=== PATIENT | female | born 1955 | race Caucasian/White ===

== ENCOUNTER 2017-08-19 13:00 | Inpatient (IN) | payer OTHER ==
[~2017-08-19] VITALS: Ht 154.9 cm; Wt 58.2 kg
[~2017-08-19 13:00] MED LIST: DOCU-131 PO; LEVO75TA PO; LISI-170 PO; MULT-750 PO; PANT40TA5 PO; TEMA15CA PO
[2017-08-19] MEDS ORDERED: methylPREDNISolone SOD SUCC 125 MG/2 ML ONE (13:44)
[2017-08-19] MEDS ORDERED: RACEPINEPHRINE INH 2.25%, 0.5ML NPPB ONE (14:00)
[2017-08-19] MEDS ORDERED: RACEPINEPHRINE INH 2.25%, 0.5ML ONE (14:06)
[2017-08-19] MEDS ORDERED: LORazepam 2 MG/ML, 1ML IVPush ONE (14:30)
[2017-08-19] MEDS ORDERED: methylPREDNISolone SOD SUCC 125 MG/2 ML IVPush ONE (14:30)
[2017-08-19 14:35] LABS: HEMATOCRIT 39.5 % (34.6-47.8); HEMOGLOBIN 13.7 g/dL (11.7-16.4); WHITE BLOOD COUNT 5.8 x10^3/uL (3.4-10)
[2017-08-19] MEDS ORDERED: LORazepam 2 MG/ML, 1ML ONE (14:41)
[2017-08-19 14:48] LABS: ASPARTATE AMINO TRANSFERASE 25 U/L (15-37); BLOOD UREA NITROGEN 5 mg/dL (7-18)
[2017-08-19] MEDS ORDERED: OMNIPAQUE 350 MG/ML, 100ML BOTTLE ONE (15:47)
[2017-08-19] MEDS ORDERED: IRON1TAB60 PO (16:35)
[2017-08-19] MEDS ORDERED: DOCUSATE 100 MG CAPSULE PO PRN (17:00)
[2017-08-19] MEDS ORDERED: POLYETHYLENE GLYCOL 17 GM PACKET PO PRN (17:00)
[2017-08-19] MEDS ORDERED: BISACODYL 10 MG SUPP PR PRN (17:00)
[2017-08-19] MEDS: RACEPINEPHRINE INH 2.25%, 0.5ML NPPB SCH ×2 (17:30→20:52)
[2017-08-19] MEDS ORDERED: methylPREDNISolone SOD SUCC 125 MG/2 ML IVPush SCH (18:00)
[2017-08-19] MEDS: SODIUM CHLORIDE 0.9% 1,000 ML IV SCH (18:07)
[2017-08-19 18:15] VITALS: BP 107/69
[2017-08-19] MEDS: NICOTINE 14MG/24 HR PATCH.TD24 TD SCH (18:21)
[2017-08-19] MEDS: THIAMINE 100 MG, MVI ADULT 10 ML, FOLIC ACID 1 MG in D5%-0.9% NACL 1,000 ML IV SCH (18:22)
[2017-08-19] MEDS: DEXAMETHASONE 4 MG/ML, 1ML IVPush SCH (18:24)
[2017-08-19] MEDS: AMPICILLIN/SULBACTAM 3 GM in SODIUM CHLORIDE 0.9% 100 ML IV SCH (18:24)
[2017-08-19] MEDS: FAMOTIDINE 20 MG/2 ML IVPush SCH (21:47)
[2017-08-20] MEDS: AMPICILLIN/SULBACTAM 3 GM in SODIUM CHLORIDE 0.9% 100 ML IV SCH ×4 (01:34→18:24)
[2017-08-20] MEDS: DEXAMETHASONE 4 MG/ML, 1ML IVPush SCH ×3 (01:40→17:17)
[2017-08-20] MEDS: SODIUM CHLORIDE 0.9% 1,000 ML IV SCH ×2 (04:00→20:00)
[2017-08-20 04:30] LABS: HEMATOCRIT 38.2 % (34.6-47.8); WHITE BLOOD COUNT 3.9 x10^3/uL (3.4-10)
[2017-08-20 04:43] LABS: BLOOD UREA NITROGEN 7 mg/dL (7-18)
[2017-08-20 04:55] LABS: ASPARTATE AMINO TRANSFERASE 16 U/L (15-37)
[2017-08-20] MEDS: RACEPINEPHRINE INH 2.25%, 0.5ML NPPB SCH ×2 (06:30→10:05)
[2017-08-20] MEDS ORDERED: MAGNESIUM SULFATE PMX 2GM/50ML 50 ML IV ONE (08:30)
[2017-08-20] MEDS: FAMOTIDINE 20 MG/2 ML IVPush SCH ×2 (08:40→20:59)
[2017-08-20] MEDS: morphine SULFATE 10 MG/ML, 1ML IVPush PRN ×2 (08:58→22:37)
[2017-08-20] MEDS ORDERED: LIDOCAINE GEL 2%, 5ML ONE (12:01)
[2017-08-20] MEDS ORDERED: EPINEPHRINE 1 MG/ML, 1ML ONE (12:01)
[2017-08-20] MEDS ORDERED: LIDOCAINE/PF 1%, 30ML ONE (12:01)
[2017-08-20] MEDS ORDERED: EPINEPHRINE TOPICAL SOLN 1 MG/ML, 30ML ONE (12:04)
[2017-08-20] MEDS ORDERED: REMIFENTANIL 1 MG ONE (12:23)
[2017-08-20] MEDS ORDERED: CEFAZOLIN 1,000 MG ONE ×2 (12:31)
[2017-08-20] MEDS ORDERED: MIDAZOLAM 1 MG/ML, 2ML ONE (12:33)
[2017-08-20] MEDS ORDERED: PHENYLEPHRINE 10 MG/ML ONE (12:54)
[2017-08-20] MEDS ORDERED: ONDANSETRON 2MG/ML, 2ML ONE (13:46)
[2017-08-20] MEDS ORDERED: SUCCINYLCHOLINE 20 MG/ML, 10ML ONE (13:46)
[2017-08-20] MEDS ORDERED: DEXAMETHASONE 4 MG/ML, 1ML ONE (13:46)
[2017-08-20] MEDS ORDERED: PROPOFOL 10 MG/ML, 20ML ONE (13:46)
[2017-08-20] MEDS ORDERED: SUFentanil 50 MCG/ML, 1ML ONE (13:47)
[2017-08-20] MEDS ORDERED: EPINEPHRINE 1 MG/ML, 1ML INFIL ONE (14:05)
[2017-08-20] MEDS ORDERED: LIDOCAINE 4% TOPICAL SOLUTION 50 ML TP ONE (14:06)
[2017-08-20] MEDS ORDERED: FENTANYL PF 100 MCG/2ML ONE (14:26)
[2017-08-20] MEDS: FENTANYL PF 100 MCG/2ML IV PRN ×2 (14:30→14:45)
[2017-08-20] MEDS ORDERED: LORazepam 2 MG/ML, 1ML IVPush PRN (15:00)
[2017-08-20] MEDS ORDERED: PROMETHAZINE 25 MG/ML, 1ML IV PRN (15:00)
[2017-08-20] MEDS ORDERED: FENTANYL PF 100 MCG/2ML IV PRN (15:00)
[2017-08-20] MEDS ORDERED: ACETAMINOPHEN 325 MG TABLET PO PRN (15:00)
[2017-08-20] MEDS ORDERED: MEPERIDINE/PF 25MG/0.5ML IVPush PRN (15:00)
[2017-08-20] MEDS ORDERED: OXYcodone 5 MG/5 ML ORAL.SOL UDC PO PRN (15:00)
[2017-08-20] MEDS ORDERED: hydrALAzine 20 MG/ML, 1ML IV PRN (15:00)
[2017-08-20] MEDS ORDERED: LABETALOL 5MG/ML, 20ML IV PRN (15:00)
[2017-08-20] MEDS ORDERED: ONDANSETRON 2MG/ML, 2ML IVPush PRN (15:00)
[2017-08-20] MEDS ORDERED: HYDROmorphone 1 MG/ML, 1ML IV PRN (15:00)
[2017-08-20] MEDS ORDERED: ALBUTEROL SULFATE 2.5 MG/3 ML NPPB PRN (15:00)
[2017-08-20] MEDS ORDERED: LEVOTHYROXINE 100 MCG INJ IVPush ONE (15:30)
[2017-08-20] MEDS: LORazepam 2 MG/ML, 1ML IVPush PRN (16:36)
[2017-08-20] MEDS: NICOTINE 14MG/24 HR PATCH.TD24 TD SCH (17:17)
[2017-08-20] MEDS: ALBUTEROL/IPRATROPIUM 2.5MG/0.5MG, 3 ML NPPB SCH ×2 (18:32→22:55)
[2017-08-20] MEDS: THIAMINE 100 MG, MVI ADULT 10 ML, FOLIC ACID 1 MG in D5%-0.9% NACL 1,000 ML IV SCH (20:59)
[2017-08-21] MEDS: AMPICILLIN/SULBACTAM 3 GM in SODIUM CHLORIDE 0.9% 100 ML IV SCH ×3 (00:41→12:48)
[2017-08-21] MEDS: DEXAMETHASONE 4 MG/ML, 1ML IVPush SCH ×3 (02:13→17:48)
[2017-08-21] MEDS: ALBUTEROL/IPRATROPIUM 2.5MG/0.5MG, 3 ML NPPB SCH ×6 (02:37→23:05)
[2017-08-21 04:34] LABS: ASPARTATE AMINO TRANSFERASE 11 U/L (15-37); BLOOD UREA NITROGEN 6 mg/dL (7-18)
[2017-08-21 04:44] LABS: HEMATOCRIT 34.7 % (34.6-47.8); HEMOGLOBIN 11.9 g/dL (11.7-16.4); WHITE BLOOD COUNT 7.2 x10^3/uL (3.4-10)
[2017-08-21] MEDS: LEVOTHYROXINE 100 MCG INJ IVPush SCH (08:58)
[2017-08-21] MEDS: FAMOTIDINE 20 MG/2 ML IVPush SCH ×2 (08:58→19:52)
[2017-08-21] MEDS: SODIUM CHLORIDE 0.9% 1,000 ML IV SCH ×2 (09:03→23:00)
[2017-08-21] MEDS ORDERED: POTASSIUM PHOSPHATE 44 MEQ in SODIUM CHLORIDE 0.9% 500 ML IV ONE (10:30)
[2017-08-21] MEDS ORDERED: OMNIPAQUE 350 MG/ML, 75ML BOTTLE ONE (11:12)
[2017-08-21] MEDS ORDERED: FENTANYL PF 100 MCG/2ML ONE (13:35)
[2017-08-21] MEDS ORDERED: NALOXONE 1 MG/ML, 2ML ONE (13:35)
[2017-08-21] MEDS ORDERED: FLUMAZENIL 0.1 MG/1 ML, 5ML ONE (13:35)
[2017-08-21] MEDS ORDERED: MIDAZOLAM 1 MG/ML, 5ML ONE (13:35)
[2017-08-21] MEDS ORDERED: LIDOCAINE 1%, 20ML ONE (14:06)
[2017-08-21] MEDS ORDERED: LIDOCAINE GEL 2%, 5ML ONE (14:14)
[2017-08-21] MEDS ORDERED: VISIPAQUE 270 MG/ML, 50ML BOTTLE ONE (15:39)
[2017-08-21] MEDS: NICOTINE 14MG/24 HR PATCH.TD24 TD SCH (17:48)
[2017-08-21] MEDS: morphine SULFATE 10 MG/ML, 1ML IVPush PRN ×2 (19:52→21:12)
[2017-08-21] MEDS ORDERED: RACEPINEPHRINE INH 2.25%, 0.5ML ONE ×2 (23:48→23:53)
[2017-08-21] MEDS: RACEPINEPHRINE INH 2.25%, 0.5ML NPPB PRN (23:55)
[2017-08-22] MEDS: LORazepam 2 MG/ML, 1ML IVPush PRN (00:07)
[2017-08-22] MEDS: THIAMINE 100 MG, MVI ADULT 10 ML, FOLIC ACID 1 MG in D5%-0.9% NACL 1,000 ML IV SCH (00:22)
[2017-08-22] MEDS: DEXAMETHASONE 4 MG/ML, 1ML IVPush SCH ×3 (02:16→18:18)
[2017-08-22] MEDS: ALBUTEROL/IPRATROPIUM 2.5MG/0.5MG, 3 ML NPPB SCH ×6 (02:25→22:18)
[2017-08-22 04:37] LABS: HEMOGLOBIN 11.8 g/dL (11.7-16.4); WHITE BLOOD COUNT 6.6 x10^3/uL (3.4-10)
[2017-08-22 04:52] LABS: BLOOD UREA NITROGEN 6 mg/dL (7-18)
[2017-08-22] MEDS: POTASSIUM CHLORIDE 20 MEQ PACKET GT SCH ×2 (10:54→21:26)
[2017-08-22] MEDS: FAMOTIDINE 20 MG/2 ML IVPush SCH ×2 (10:55→21:25)
[2017-08-22] MEDS: LEVOTHYROXINE 100 MCG INJ IVPush SCH (10:58)
[2017-08-22] MEDS: SODIUM CHLORIDE 0.9% 1,000 ML IV SCH ×2 (13:33→23:00)
[2017-08-22] MEDS: morphine SULFATE 10 MG/ML, 1ML IVPush PRN ×3 (14:28→23:06)
[2017-08-22] MEDS: FOLIC ACID 1 MG TABLET PO SCH (18:18)
[2017-08-22] MEDS: NICOTINE 14MG/24 HR PATCH.TD24 TD SCH (18:19)
[2017-08-22] MEDS ORDERED: FLUCONAZOLE 100 MG TABLET PO ONE (19:30)
[2017-08-22] MEDS: AMPICILLIN/SULBACTAM 3 GM in SODIUM CHLORIDE 0.9% 100 ML IV SCH (21:25)
[2017-08-22] MEDS ORDERED: THIAMINE 100 MG, MVI ADULT 10 ML in D5%-0.9% NACL 1,000 ML IV SCH (23:00)
[2017-08-23] MEDS: ALBUTEROL/IPRATROPIUM 2.5MG/0.5MG, 3 ML NPPB SCH ×5 (03:34→18:00)
[2017-08-23] MEDS: AMPICILLIN/SULBACTAM 3 GM in SODIUM CHLORIDE 0.9% 100 ML IV SCH ×3 (03:48→22:04)
[2017-08-23] MEDS: morphine SULFATE 10 MG/ML, 1ML IVPush PRN (03:48)
[2017-08-23] MEDS: DEXAMETHASONE 4 MG/ML, 1ML IVPush SCH ×2 (03:48→11:08)
[2017-08-23 04:34] LABS: HEMOGLOBIN 12.5 g/dL (11.7-16.4); WHITE BLOOD COUNT 6.5 x10^3/uL (3.4-10)
[2017-08-23 04:45] LABS: BLOOD UREA NITROGEN 7 mg/dL (7-18)
[2017-08-23] MEDS: SODIUM CHLORIDE 0.9% 1,000 ML IV SCH (08:31)
[2017-08-23] MEDS: FAMOTIDINE 20 MG/2 ML IVPush SCH (08:31)
[2017-08-23] MEDS: FOLIC ACID 1 MG TABLET PO SCH (08:31)
[2017-08-23] MEDS: LEVOTHYROXINE 100 MCG INJ IVPush SCH (08:31)
[2017-08-23] MEDS: POTASSIUM CHLORIDE 20 MEQ PACKET GT SCH (08:31)
[2017-08-23] MEDS ORDERED: ACETAMINOPHEN 325 MG TABLET PO PRN (09:30)
[2017-08-23] MEDS ORDERED: MULTIVITAMIN LIQUID PO SCH (09:30)
[2017-08-23] MEDS: OXYcodone 5 MG/5 ML ORAL.SOL UDC PO PRN ×4 (13:00→23:39)
[2017-08-23 14:30] VITALS: BP 155/77
[2017-08-23] MEDS: NICOTINE 14MG/24 HR PATCH.TD24 TD SCH (18:22)
[2017-08-23 21:11] VITALS: BP 128/70
[2017-08-23] MEDS ORDERED: METOCLOPRAMIDE 5 MG/ML, 2ML IVPush ONE (22:00)
[2017-08-24 02:02] VITALS: BP 151/85
[2017-08-24] MEDS: AMPICILLIN/SULBACTAM 3 GM in SODIUM CHLORIDE 0.9% 100 ML IV SCH ×2 (06:00→15:13)
[2017-08-24] MEDS: LEVOTHYROXINE 100 MCG INJ IVPush SCH ×2 (06:00→08:25)
[2017-08-24] MEDS: ALBUTEROL/IPRATROPIUM 2.5MG/0.5MG, 3 ML NPPB SCH ×4 (07:00→20:00)
[2017-08-24 07:18] VITALS: BP 158/83
[2017-08-24] MEDS: MULTIVITAMIN LIQUID PO SCH (08:25)
[2017-08-24] MEDS: OXYcodone 5 MG/5 ML ORAL.SOL UDC PO PRN ×3 (11:22→20:59)
[2017-08-24] MEDS ORDERED: TEMAZEPAM 15 MG CAPSULE PO PRN ×2 (12:30→22:00)
[2017-08-24] MEDS ORDERED: DOCUSATE 100 MG CAPSULE PO PRN ×3 (12:30→22:00)
[2017-08-24 13:50] VITALS: BP 93/63
[2017-08-24] MEDS: LISINOPRIL 20 MG TABLET PO SCH (15:12)
[2017-08-24] MEDS: NICOTINE 14MG/24 HR PATCH.TD24 TD SCH (17:50)
[2017-08-24] MEDS ORDERED: ERGOCALCIFEROL 50,000 UNIT CAPSULE PO SCH (19:30)
[2017-08-24 19:37] VITALS: BP 105/62
[2017-08-24] MEDS ORDERED: ACETAMINOPHEN 325 MG TABLET PO PRN (22:00)
[2017-08-24] MEDS ORDERED: POLYETHYLENE GLYCOL 17 GM PACKET PO PRN (22:00)
[2017-08-24] MEDS ORDERED: BISACODYL 10 MG SUPP PR PRN (22:00)
[2017-08-25] MEDS: OXYcodone 5 MG/5 ML ORAL.SOL UDC PO PRN ×4 (01:21→22:06)
[2017-08-25 01:37] VITALS: BP 101/65
[2017-08-25 05:06] LABS: BLOOD UREA NITROGEN 13 mg/dL (7-18)
[2017-08-25] MEDS: LEVOTHYROXINE 75 MCG TABLET PO SCH (06:00)
[2017-08-25] MEDS: ALBUTEROL/IPRATROPIUM 2.5MG/0.5MG, 3 ML NPPB SCH ×4 (06:55→19:50)
[2017-08-25 07:42] VITALS: BP 105/66
[2017-08-25] MEDS: LISINOPRIL 20 MG TABLET PO SCH (07:44)
[2017-08-25] MEDS: MULTIVITAMIN LIQUID PO SCH (07:46)
[2017-08-25] MEDS ORDERED: ONDANSETRON 2MG/ML, 2ML IVPush PRN (08:00)
[2017-08-25] MEDS ORDERED: POTASSIUM CHLORIDE 40 MEQ in SODIUM CHLORIDE 0.9% 500 ML IV ONE (10:00)
[2017-08-25] MEDS: CHOLECALCIFEROL 1,000 UNIT TABLET PO SCH (12:16)
[2017-08-25 14:00] VITALS: BP 106/67
[2017-08-25 21:05] VITALS: BP 101/65
[2017-08-25] MEDS: NICOTINE 14MG/24 HR PATCH.TD24 TD SCH (22:06)
[2017-08-26 01:03] VITALS: BP 95/57
[2017-08-26] MEDS: OXYcodone 5 MG/5 ML ORAL.SOL UDC PO PRN ×3 (03:47→14:27)
[2017-08-26 04:41] LABS: HEMATOCRIT 36.4 % (34.6-47.8); HEMOGLOBIN 12.5 g/dL (11.7-16.4)
[2017-08-26 04:51] LABS: BLOOD UREA NITROGEN 14 mg/dL (7-18)
[2017-08-26] MEDS: LEVOTHYROXINE 75 MCG TABLET PO SCH (06:44)
[2017-08-26 07:07] VITALS: BP 83/50
[2017-08-26] MEDS: ALBUTEROL/IPRATROPIUM 2.5MG/0.5MG, 3 ML NPPB SCH ×3 (07:50→21:15)
[2017-08-26] MEDS: LISINOPRIL 20 MG TABLET PO SCH (09:43)
[2017-08-26] MEDS: CHOLECALCIFEROL 1,000 UNIT TABLET PO SCH (09:43)
[2017-08-26] MEDS: MULTIVITAMIN LIQUID PO SCH (09:43)
[2017-08-26] MEDS ORDERED: POTASSIUM PHOS 4.4 MEQ/ML IV ONE (14:30)
[2017-08-26] MEDS ORDERED: POTASSIUM PHOSPHATE 22 MEQ in SODIUM CHLORIDE 0.9% 500 ML IV ONE (14:30)
[2017-08-26] MEDS: NICOTINE 14MG/24 HR PATCH.TD24 TD SCH (18:08)
[2017-08-26 20:12] VITALS: BP 112/70
[2017-08-26] MEDS: morphine SULFATE 10 MG/ML, 1ML IVPush PRN (20:28)
[2017-08-27] MEDS: morphine SULFATE 10 MG/ML, 1ML IVPush PRN ×4 (01:49→18:21)
[2017-08-27 02:21] VITALS: BP 103/68
[2017-08-27] MEDS: LEVOTHYROXINE 75 MCG TABLET PO SCH (05:49)
[2017-08-27 05:53] LABS: BLOOD UREA NITROGEN 12 mg/dL (7-18)
[2017-08-27 07:10] VITALS: BP 108/68
[2017-08-27] MEDS: CHOLECALCIFEROL 1,000 UNIT TABLET PO SCH (10:24)
[2017-08-27] MEDS: LISINOPRIL 20 MG TABLET PO SCH (10:24)
[2017-08-27] MEDS: MULTIVITAMIN LIQUID PO SCH (10:24)
[2017-08-27] MEDS: ALBUTEROL/IPRATROPIUM 2.5MG/0.5MG, 3 ML NPPB SCH ×2 (10:35→19:07)
[2017-08-27 13:43] VITALS: BP 104/64
[2017-08-27] MEDS: METOCLOPRAMIDE 5 MG/ML, 2ML IVPush SCH ×2 (14:28→18:21)
[2017-08-27] MEDS: NICOTINE 14MG/24 HR PATCH.TD24 TD SCH (16:13)
[2017-08-27 20:48] VITALS: BP 101/66
[2017-08-28] MEDS: METOCLOPRAMIDE 5 MG/ML, 2ML IVPush SCH ×4 (01:00→17:29)
[2017-08-28 04:44] VITALS: BP 117/72
[2017-08-28] MEDS: LEVOTHYROXINE 75 MCG TABLET PO SCH (05:55)
[2017-08-28 07:20] VITALS: BP 138/78
[2017-08-28] MEDS: ALBUTEROL/IPRATROPIUM 2.5MG/0.5MG, 3 ML NPPB SCH ×2 (09:45→20:29)
[2017-08-28] MEDS ORDERED: BUPIVACAINE/PF 0.25% ONE (12:36)
[2017-08-28] MEDS ORDERED: EPINEPHRINE 1 MG/ML, 1ML ONE (12:36)
[2017-08-28] MEDS ORDERED: LIDOCAINE/PF 1%, 30ML ONE (12:36)
[2017-08-28] MEDS ORDERED: MIDAZOLAM 1 MG/ML, 2ML ONE (13:21)
[2017-08-28] MEDS ORDERED: FENTANYL PF 250 MCG/5ML ONE (13:21)
[2017-08-28] MEDS ORDERED: DEXAMETHASONE 4 MG/ML, 1ML ONE (13:23)
[2017-08-28] MEDS ORDERED: ROCURONIUM 10 MG/ML ONE (13:23)
[2017-08-28] MEDS ORDERED: NEOSTIGMINE 1 MG/ML, 10ML ONE (13:23)
[2017-08-28] MEDS ORDERED: SUCCINYLCHOLINE 20 MG/ML, 10ML ONE (13:23)
[2017-08-28] MEDS ORDERED: GLYCOPYRROLATE 0.2MG/1ML, 5ML ONE (13:23)
[2017-08-28] MEDS ORDERED: CEFAZOLIN 1,000 MG ONE (13:23)
[2017-08-28] MEDS ORDERED: ONDANSETRON 2MG/ML, 2ML ONE (13:23)
[2017-08-28] MEDS ORDERED: PROPOFOL 10 MG/ML, 20ML ONE (13:23)
[2017-08-28] MEDS ORDERED: LIDOCAINE 1%-EPI 1:100K, 30ML INFIL ONE (13:33)
[2017-08-28] MEDS ORDERED: BUPIVACAINE/PF-EPI 0.25% 1:200K INFIL ONE (13:34)
[2017-08-28] MEDS ORDERED: HYDROmorphone 1 MG/ML, 1ML ONE (14:57)
[2017-08-28] MEDS ORDERED: FENTANYL PF 100 MCG/2ML IV PRN (15:00)
[2017-08-28] MEDS ORDERED: MIDAZOLAM 1 MG/ML, 2ML IV PRN (15:00)
[2017-08-28] MEDS ORDERED: PROMETHAZINE 25 MG/ML, 1ML IV PRN (15:00)
[2017-08-28] MEDS ORDERED: ONDANSETRON 2MG/ML, 2ML IVPush PRN (15:00)
[2017-08-28] MEDS: HYDROmorphone 1 MG/ML, 1ML IV PRN ×2 (15:01→15:21)
[2017-08-28 15:50] VITALS: BP 111/57
[2017-08-28] MEDS: NICOTINE 14MG/24 HR PATCH.TD24 TD SCH (17:26)
[2017-08-28] MEDS: CHOLECALCIFEROL 1,000 UNIT TABLET PO SCH (17:27)
[2017-08-28] MEDS: morphine SULFATE 10 MG/ML, 1ML IVPush PRN ×2 (17:27→21:16)
[2017-08-28] MEDS: LISINOPRIL 20 MG TABLET PO SCH (17:27)
[2017-08-28] MEDS: MULTIVITAMIN LIQUID PO SCH (17:27)
[2017-08-28 19:26] VITALS: BP 92/53
[2017-08-28] MEDS: OXYcodone 5 MG/5 ML ORAL.SOL UDC PO PRN (19:57)
[2017-08-29] MEDS: METOCLOPRAMIDE 5 MG/ML, 2ML IVPush SCH ×3 (01:00→13:33)
[2017-08-29 02:14] VITALS: BP 111/65
[2017-08-29] MEDS: morphine SULFATE 10 MG/ML, 1ML IVPush PRN ×3 (02:20→20:13)
[2017-08-29] MEDS: LEVOTHYROXINE 75 MCG TABLET PO SCH (05:39)
[2017-08-29] MEDS: SODIUM CHLORIDE 0.9% 1,000 ML IV SCH ×2 (06:30→15:23)
[2017-08-29 08:21] VITALS: BP 129/69
[2017-08-29] MEDS: LISINOPRIL 20 MG TABLET PO SCH (09:00)
[2017-08-29] MEDS: MULTIVITAMIN LIQUID PO SCH (09:00)
[2017-08-29] MEDS: CHOLECALCIFEROL 1,000 UNIT TABLET PO SCH (09:00)
[2017-08-29] MEDS ORDERED: FENTANYL PF 100 MCG/2ML ONE ×2 (09:32)
[2017-08-29] MEDS ORDERED: LIDOCAINE GEL 2%, 5ML ONE (10:01)
[2017-08-29] MEDS ORDERED: EPINEPHRINE 1 MG/ML, 1ML ONE (10:01)
[2017-08-29] MEDS ORDERED: LIDOCAINE/PF 1%, 30ML ONE (10:01)
[2017-08-29] MEDS ORDERED: LIDOCAINE 4% TOPICAL SOLUTION 50 ML ONE (10:01)
[2017-08-29] MEDS ORDERED: LIDOCAINE 1%-EPI 1:100K, 30ML IM ONE (10:20)
[2017-08-29] MEDS ORDERED: LIDOCAINE 4% TOPICAL SOLUTION 50 ML TP ONE (10:20)
[2017-08-29] MEDS ORDERED: PROMETHAZINE 25 MG/ML, 1ML IV PRN (10:30)
[2017-08-29] MEDS ORDERED: hydrALAzine 20 MG/ML, 1ML IV PRN (10:30)
[2017-08-29] MEDS ORDERED: ONDANSETRON 2MG/ML, 2ML IVPush PRN (10:30)
[2017-08-29] MEDS: ALBUTEROL/IPRATROPIUM 2.5MG/0.5MG, 3 ML NPPB SCH ×2 (10:30→21:00)
[2017-08-29] MEDS ORDERED: OXYcodone 5 MG/5 ML ORAL.SOL UDC PO PRN (10:30)
[2017-08-29] MEDS ORDERED: MEPERIDINE/PF 25MG/0.5ML IVPush PRN (10:30)
[2017-08-29] MEDS ORDERED: LABETALOL 5MG/ML, 20ML IV PRN (10:30)
[2017-08-29] MEDS ORDERED: ACETAMINOPHEN 325 MG TABLET PO PRN (10:30)
[2017-08-29] MEDS ORDERED: FENTANYL PF 100 MCG/2ML IV PRN (10:30)
[2017-08-29] MEDS ORDERED: ALBUTEROL/IPRATROPIUM 2.5MG/0.5MG, 3 ML NPPB PRN (10:30)
[2017-08-29] MEDS ORDERED: MIDAZOLAM 1 MG/ML, 2ML ONE (11:32)
[2017-08-29] MEDS ORDERED: ONDANSETRON 2MG/ML, 2ML ONE (11:39)
[2017-08-29] MEDS ORDERED: OXYcodone 5 MG/5 ML ORAL.SOL UDC ONE (12:14)
[2017-08-29] MEDS ORDERED: ACETAMINOPHEN 650 MG/20.3 ML UDC ONE (12:14)
[2017-08-29] MEDS ORDERED: HYDROmorphone 1 MG/ML, 1ML ONE (12:20)
[2017-08-29] MEDS: HYDROmorphone 1 MG/ML, 1ML IV PRN ×2 (12:23→12:48)
[2017-08-29 14:10] VITALS: BP 119/62
[2017-08-29 15:41] VITALS: BP 137/69
[2017-08-29] MEDS ORDERED: MAGNESIUM SULFATE PMX 2GM/50ML 50 ML IV ONE (18:00)
[2017-08-29 19:26] VITALS: BP 108/70
[2017-08-29] MEDS: NICOTINE 14MG/24 HR PATCH.TD24 TD SCH (20:13)
[2017-08-30] MEDS: SODIUM CHLORIDE 0.9% 1,000 ML IV SCH (00:15)
[2017-08-30] MEDS: morphine SULFATE 10 MG/ML, 1ML IVPush PRN ×4 (00:21→17:08)
[2017-08-30 01:09] VITALS: BP 132/68
[2017-08-30 04:45] LABS: HEMATOCRIT 32.1 % (34.6-47.8)
[2017-08-30 04:49] LABS: ASPARTATE AMINO TRANSFERASE 18 U/L (15-37); BLOOD UREA NITROGEN 4 mg/dL (7-18)
[2017-08-30] MEDS: LEVOTHYROXINE 75 MCG TABLET PO SCH (05:44)
[2017-08-30 07:11] VITALS: BP 123/73
[2017-08-30] MEDS ORDERED: POTASSIUM CHLORIDE 20 MEQ TAB.ER.PRT PO ONE (07:30)
[2017-08-30] MEDS: CHOLECALCIFEROL 1,000 UNIT TABLET PO SCH (08:56)
[2017-08-30] MEDS: LISINOPRIL 20 MG TABLET PO SCH (08:56)
[2017-08-30] MEDS: MULTIVITAMIN LIQUID PO SCH (08:57)
[2017-08-30] MEDS: ALBUTEROL/IPRATROPIUM 2.5MG/0.5MG, 3 ML NPPB SCH (09:20)
[2017-08-30 14:03] VITALS: BP 103/68
[2017-08-30] MEDS ORDERED: CHOL10003 PO (15:26)
== END 2017-08-30 19:06 | disposition home health service (06) | DRG 4 ==
LOC: ED 15:56 → EDIP 16:01 → CCU 17:44 → 3NW 08-23 11:43
PROVIDERS: ADMIT Hospitalist; ATTEND Family Medicine
PROC: 0CJS8ZZ Inspection of Larynx, Via Natural or Artificial Opening Endoscopic (ICD-10-PCS; principal; 2017-08-19)
PROC: 0CBS8ZX Excision of Larynx, Via Natural or Artificial Opening Endoscopic, Diagnostic (ICD-10-PCS; 2017-08-20)
PROC: 0B110F4 Bypass Trachea to Cutaneous with Tracheostomy Device, Open Approach (ICD-10-PCS; 2017-08-20 12:30)
PROC: 0DH63UZ Insertion of Feeding Device into Stomach, Percutaneous Approach (ICD-10-PCS; 2017-08-21)
PROC: 3E0G76Z Introduction of Nutritional Substance into Upper GI, Via Natural or Artificial Opening (ICD-10-PCS; 2017-08-21)
PROC: 0DH63UZ Insertion of Feeding Device into Stomach, Percutaneous Approach (ICD-10-PCS; 2017-08-21)
PROC: BD11ZZZ Fluoroscopy of Esophagus (ICD-10-PCS; 2017-08-23)
PROC: 0CDXXZ1 Extraction of Lower Tooth, Multiple, External Approach (ICD-10-PCS; 2017-08-28)
PROC: 0B21XFZ Change Tracheostomy Device in Trachea, External Approach (ICD-10-PCS; 2017-08-29)
PROC: 0BJ08ZZ Inspection of Tracheobronchial Tree, Via Natural or Artificial Opening Endoscopic (ICD-10-PCS; 2017-08-29)
DX: J96.01 Acute respiratory failure with hypoxia (principal); R13.10 Dysphagia, unspecified; C32.1 Malignant neoplasm of supraglottis; C77.9 Secondary and unspecified malignant neoplasm of lymph node, unspecified; E87.1 Hypo-osmolality and hyponatremia; K56.7 Ileus, unspecified; M48.56XA Collapsed vertebra, not elsewhere classified, lumbar region, initial encounter for fracture; D75.89 Other specified diseases of blood and blood-forming organs; K02.9 Dental caries, unspecified; E03.9 Hypothyroidism, unspecified; E55.9 Vitamin D deficiency, unspecified; F17.210 Nicotine dependence, cigarettes, uncomplicated; I11.9 Hypertensive heart disease without heart failure; J34.2 Deviated nasal septum; K21.9 Gastro-esophageal reflux disease without esophagitis; E87.6 Hypokalemia; F10.20 Alcohol dependence, uncomplicated; R14.0 Abdominal distension (gaseous); J38.7 Other diseases of larynx; M40.205 Unspecified kyphosis, thoracolumbar region; Z82.49 Family history of ischemic heart disease and other diseases of the circulatory system; Z79.899 Other long term (current) drug therapy; Z71.6 Tobacco abuse counseling; Z23 Encounter for immunization
CPT/HCPCS: 36415; 49440; 70100; 70491; 71010; 71260; 74020; 74177; 74230; 80048; 80053; 82306; 82607; 83605; 83735; 84100; 84439; 84443; 85025; 87040; 87081; 88305; 88331; 88342; 93005; 94640; 96374; 96375; 99156; 99157; C1725; J0171; J0295; J0690; J1100; J1170; J2250; J2405; J2704; J2710; J3010; J3411; J3480; J3490; J7042; J7620; Q9966; Q9967; 92523-GN; C1729; C1751; C1769; G0461; J0330; J2060; J2270; J2310; J2370; J2765; J2930; J3475; J7030; J7040; S0028

== ENCOUNTER → 2017-09-10 | Outpatient (CLI) | payer OTHER ==
[~2017-09-10] MED LIST changes: +CHOL10003 PO; +IRON1TAB60 PO
== END ==
LOC: ROC 13:33
PROVIDERS: ATTEND Radiology Radiation Oncology
DX: Z02.9 Encounter for administrative examinations, unspecified (principal)

== ENCOUNTER → 2017-09-11 | Outpatient (CLI) | payer OTHER | END | disposition home or self-care (01) | LOC: ROC 13:01 | PROVIDERS: ATTEND Radiology Radiation Oncology | DX: C32.9 Malignant neoplasm of larynx, unspecified (principal); I10 Essential (primary) hypertension; E03.9 Hypothyroidism, unspecified | CPT/HCPCS: 99213; G0463 ==

== ENCOUNTER → 2017-10-10 | Outpatient (CLI) | payer OTHER | END | disposition home or self-care (01) | LOC: PETCFH 10-02 08:40 | PROVIDERS: ATTEND Radiology Radiation Oncology | DX: C32.0 Malignant neoplasm of glottis (principal); I70.0 Atherosclerosis of aorta; I10 Essential (primary) hypertension | CPT/HCPCS: 78815; A9552 ==

== ENCOUNTER → 2017-10-15 | Outpatient (CLI) | payer OTHER ==
[~2017-10-15] VITALS: Ht 154.9 cm; Wt 44.0 kg
[2017-10-15 08:20] VITALS: BP 91/63
[2017-10-15 09:14] LABS: HEMATOCRIT 33.3 % (34.6-47.8); HEMOGLOBIN 11.3 g/dL (11.7-16.4)
[2017-10-15 09:26] LABS: ASPARTATE AMINO TRANSFERASE 17 U/L (15-37); BLOOD UREA NITROGEN 6 mg/dL (7-18)
== END | disposition home or self-care (01) ==
LOC: INFUSION 08:13
PROVIDERS: ATTEND Internal Medicine
DX: C32.9 Malignant neoplasm of larynx, unspecified (principal)
CPT/HCPCS: 36415; 80053; 83735; 85025; 99211; G0463

== ENCOUNTER 2017-10-26 07:49 | Emergency (ER) | payer OTHER ==
[~2017-10-26] VITALS: Ht 154.9 cm; Wt 43.0 kg
[~2017-10-26 07:49] MED LIST changes: +CIPR250T2 PO
[2017-10-26 07:50] VITALS: BP 101/69
[2017-10-26 09:11] LABS: BASOPHILS # (AUTO) 0.03 x10^3/uL (0-0.1); BASOPHILS % (AUTO) 1 % (0-1); EOSINOPHILS % (AUTO) 2 % (1-7); LYMPHOCYTES % (AUTO) 8 % (22-44); MD NO; MEAN CORPUSCULAR HEMOGLOBIN 32.2 pg (27.0-34.8); MEAN CORPUSCULAR HGB CONC 33.5 g/dL (32.4-35.8); MEAN CORPUSCULAR VOLUME 96.2 fL (80-100); MEAN PLATELET VOLUME 6.3 fL (7.4-10.4); MONOCYTES # (AUTO) 0.43 x10^3/uL (0.2-0.8); MONOCYTES % (AUTO) 9 % (2-9); NEUTROPHILS # (AUTO) 4.01 x10^3/uL (1.8-6.8); NEUTROPHILS % (AUTO) 81 % (42-75); PLATELET COUNT 304 x10^3/uL (130-400); RED BLOOD COUNT 2.74 x10^6/uL (3.82-5.3); RED CELL DISTRIBUTION WIDTH 15.4 % (9.6-15.2)
[2017-10-26 09:20] LABS: ANION GAP 9 mmol/L (5-15); CALCIUM 11.2 mg/dL (8.5-10.1); CHLORIDE 98 mmol/L (98-107); CREATININE 0.49 mg/dL (0.55-1.02)
[2017-10-26 09:21] LABS: ALBUMIN 2.7 g/dL (3.4-5.0)
[2017-10-26 09:24] LABS: TROPONIN I < 0.015 ng/mL (0.000-0.045)
[2017-10-26] MEDS ORDERED: POTASSIUM CHLORIDE 10% 40 MEQ/30 ML UDC PO ONE (09:30)
[2017-10-26] MEDS ORDERED: BACITRACIN ZINC OINT 500U/GM, 0.9 GM ONE (09:37)
== END 2017-10-26 10:43 | disposition home or self-care (01) ==
LOC: ED 08:46
DX: R04.2 Hemoptysis (principal); E83.52 Hypercalcemia; E87.6 Hypokalemia; L03.311 Cellulitis of abdominal wall; I10 Essential (primary) hypertension; Z87.891 Personal history of nicotine dependence
CPT/HCPCS: 36415; 71045; 80048; 82040; 83880; 84484; 85025; 99285

== ENCOUNTER 2017-10-27 21:10 | Inpatient (IN) | payer OTHER ==
[~2017-10-27] VITALS: Ht 154.9 cm; Wt 52.6 kg
[2017-10-27] MEDS ORDERED: SODIUM CHLORIDE 0.9% 1,000ML IVBOLUS ONE (22:00)
[2017-10-27] MEDS ORDERED: SODIUM CHLORIDE FLUSH 10ML SYR IVF ONE (22:00)
[2017-10-27] MEDS ORDERED: hydrALAzine 20 MG/ML, 1ML IVPush PRN (23:30)
[2017-10-27] MEDS ORDERED: BISACODYL 10 MG SUPP PR PRN (23:30)
[2017-10-27] MEDS ORDERED: ONDANSETRON 2MG/ML, 2ML IVPush PRN (23:30)
[2017-10-27 23:42] VITALS: BP 126/76
[2017-10-28] MEDS: MORPHINE SULFATE 4 MG/ML, 1ML IVPush PRN ×4 (00:20→19:45)
[2017-10-28] MEDS: POTASSIUM CHLORIDE 30 MEQ in SODIUM CHLORIDE 0.9% 1,000 ML IV SCH ×2 (01:10→13:55)
[2017-10-28 02:16] VITALS: BP 116/69
[2017-10-28 07:56] VITALS: BP 119/69
[2017-10-28] MEDS ORDERED: LIDOCAINE 2%, 20ML ONE (08:45)
[2017-10-28 09:45] VITALS: BP 111/69
[2017-10-28] MEDS: LEVOTHYROXINE 100 MCG INJ IVPush SCH (10:03)
[2017-10-28 10:29] VITALS: BP 111/69
[2017-10-28 12:13] VITALS: BP 111/68
[2017-10-28 16:03] LABS: BASOPHILS # (AUTO) 0.01 x10^3/uL (0-0.1); BASOPHILS % (AUTO) 0 % (0-1); EOSINOPHILS # (AUTO) 0.16 x10^3/uL (0-0.4); EOSINOPHILS % (AUTO) 3 % (1-7); LYMPHOCYTES # (AUTO) 0.41 x10^3/uL (1-3.4); LYMPHOCYTES % (AUTO) 9 % (22-44); MD NO; MEAN CORPUSCULAR HEMOGLOBIN 32.9 pg (27.0-34.8); MEAN CORPUSCULAR VOLUME 96.8 fL (80-100); MEAN PLATELET VOLUME 6.2 fL (7.4-10.4); MONOCYTES # (AUTO) 0.49 x10^3/uL (0.2-0.8); MONOCYTES % (AUTO) 11 % (2-9); NEUTROPHILS # (AUTO) 3.59 x10^3/uL (1.8-6.8); NEUTROPHILS % (AUTO) 77 % (42-75); PLATELET COUNT 214 x10^3/uL (130-400); RED BLOOD COUNT 2.42 x10^6/uL (3.82-5.3); RED CELL DISTRIBUTION WIDTH 15.6 % (9.6-15.2)
[2017-10-28 16:07] LABS: ALANINE AMINOTRANSFERASE 14 U/L (12-78); ALBUMIN 2.4 g/dL (3.4-5.0); ANION GAP 8 mmol/L (5-15); CALCIUM 11.3 mg/dL (8.5-10.1); CHLORIDE 103 mmol/L (98-107)
[2017-10-28 16:10] LABS: ALKALINE PHOSPHATASE 72 U/L (45-117); BILIRUBIN,TOTAL 0.5 mg/dL (0.2-1.0); CREATININE 0.35 mg/dL (0.55-1.02)
[2017-10-28] MEDS ORDERED: MAGNESIUM SULFATE PMX 4GM/100M 100 ML IV ONE (18:30)
[2017-10-28] MEDS ORDERED: SODIUM PHOSPHATE 4 MEQ/ML IV SCH (18:30)
[2017-10-28] MEDS ORDERED: SODIUM PHOSPHATE 30 MMOL in SODIUM CHLORIDE 0.9% 500 ML IV ONE (19:00)
[2017-10-28 19:08] VITALS: BP 125/75
[2017-10-28] MEDS: SODIUM CHLORIDE 0.9% 100 ML IV SCH (23:00)
[2017-10-28] MEDS: SODIUM CHLORIDE NASAL SPRAY 45ML BOTTLE NAS PRN (23:30)
[2017-10-29] MEDS: MORPHINE SULFATE 4 MG/ML, 1ML IVPush PRN ×5 (00:01→19:55)
[2017-10-29 01:59] VITALS: BP 134/79
[2017-10-29] MEDS: SODIUM CHLORIDE 0.9% 100 ML IV SCH (03:00)
[2017-10-29 05:19] LABS: BASOPHILS # (AUTO) 0.03 x10^3/uL (0-0.1); BASOPHILS % (AUTO) 1 % (0-1); EOSINOPHILS # (AUTO) 0.23 x10^3/uL (0-0.4); EOSINOPHILS % (AUTO) 5 % (1-7); LYMPHOCYTES # (AUTO) 0.47 x10^3/uL (1-3.4); LYMPHOCYTES % (AUTO) 10 % (22-44); MD NO; MEAN CORPUSCULAR HEMOGLOBIN 32.8 pg (27.0-34.8); MEAN CORPUSCULAR HGB CONC 33.9 g/dL (32.4-35.8); MEAN CORPUSCULAR VOLUME 96.6 fL (80-100); MEAN PLATELET VOLUME 6.4 fL (7.4-10.4); MONOCYTES # (AUTO) 0.56 x10^3/uL (0.2-0.8); MONOCYTES % (AUTO) 11 % (2-9); NEUTROPHILS % (AUTO) 74 % (42-75); PLATELET COUNT 211 x10^3/uL (130-400); RED BLOOD COUNT 2.46 x10^6/uL (3.82-5.3); RED CELL DISTRIBUTION WIDTH 15.7 % (9.6-15.2)
[2017-10-29 05:30] LABS: CHLORIDE 103 mmol/L (98-107)
[2017-10-29 05:37] LABS: ALANINE AMINOTRANSFERASE 14 U/L (12-78); ALBUMIN 2.4 g/dL (3.4-5.0); ALKALINE PHOSPHATASE 79 U/L (45-117); ANION GAP 8 mmol/L (5-15); BILIRUBIN,TOTAL 0.3 mg/dL (0.2-1.0); CALCIUM 11.4 mg/dL (8.5-10.1); CREATININE 0.41 mg/dL (0.55-1.02)
[2017-10-29] MEDS ORDERED: POTASSIUM CHLORIDE 20 MEQ TAB.ER.PRT PO ONE ×2 (07:00→12:00)
[2017-10-29 07:40] VITALS: BP 118/75
[2017-10-29] MEDS: LEVOTHYROXINE 100 MCG INJ IVPush SCH (09:00)
[2017-10-29] MEDS ORDERED: SODIUM CHLORIDE 0.9% 1,000 ML IV SCH (12:00)
[2017-10-29 13:25] VITALS: BP 115/70
[2017-10-29] MEDS ORDERED: LORazepam 1MG TABLET ONE (14:10)
[2017-10-29] MEDS ORDERED: LORazepam 0.5MG TABLET PO PRN (14:30)
[2017-10-29] MEDS ORDERED: POTASSIUM CHLORIDE 10% 40 MEQ/30 ML UDC PO ONE (16:30)
[2017-10-29] MEDS ORDERED: FUROSEMIDE 20 MG/2 ML IV ONE (16:30)
[2017-10-29] MEDS ORDERED: POTASSIUM CHLORIDE 10% 20 MEQ/15 ML UDC PO ONE (16:30)
[2017-10-29 21:30] VITALS: BP 107/70
[2017-10-29] MEDS ORDERED: FUROSEMIDE 20 MG/2 ML ONE (21:30)
[2017-10-30] MEDS ORDERED: morphine SULFATE 10 MG/ML, 1ML ONE (00:13)
[2017-10-30] MEDS: MORPHINE SULFATE 4 MG/ML, 1ML IVPush PRN ×5 (00:15→23:42)
[2017-10-30 03:27] VITALS: BP 113/73
[2017-10-30] MEDS: SODIUM CHLORIDE 0.9% 1,000 ML IV SCH (03:37)
[2017-10-30 04:49] LABS: BASOPHILS # (AUTO) 0.01 x10^3/uL (0-0.1); BASOPHILS % (AUTO) 0 % (0-1); EOSINOPHILS # (AUTO) 0.19 x10^3/uL (0-0.4); EOSINOPHILS % (AUTO) 4 % (1-7); LYMPHOCYTES % (AUTO) 10 % (22-44); MD NO; MEAN CORPUSCULAR HGB CONC 33.9 g/dL (32.4-35.8); MEAN CORPUSCULAR VOLUME 97.3 fL (80-100); MEAN PLATELET VOLUME 6.6 fL (7.4-10.4); MONOCYTES # (AUTO) 0.58 x10^3/uL (0.2-0.8); MONOCYTES % (AUTO) 12 % (2-9); NEUTROPHILS % (AUTO) 74 % (42-75); PLATELET COUNT 209 x10^3/uL (130-400); RED BLOOD COUNT 2.48 x10^6/uL (3.82-5.3); RED CELL DISTRIBUTION WIDTH 16.3 % (9.6-15.2)
[2017-10-30 04:56] LABS: ALBUMIN 2.3 g/dL (3.4-5.0); ANION GAP 5 mmol/L (5-15); CALCIUM 10.4 mg/dL (8.5-10.1); CHLORIDE 104 mmol/L (98-107)
[2017-10-30 05:00] LABS: ALANINE AMINOTRANSFERASE 9 U/L (12-78); ALKALINE PHOSPHATASE 87 U/L (45-117); BILIRUBIN,TOTAL 0.3 mg/dL (0.2-1.0); CREATININE 0.42 mg/dL (0.55-1.02); TOTAL PROTEIN 5.7 g/dL (6.4-8.2)
[2017-10-30] MEDS ORDERED: POTASSIUM CHLORIDE 20 MEQ TAB.ER.PRT PO ONE (07:00)
[2017-10-30] MEDS ORDERED: SODIUM PHOSPHATE 4 MEQ/ML IV SCH (07:00)
[2017-10-30] MEDS ORDERED: MAGNESIUM SULFATE PMX 2GM/50ML 50 ML IV ONE (07:00)
[2017-10-30] MEDS ORDERED: SODIUM PHOSPHATE 30 MMOL in SODIUM CHLORIDE 0.9% 500 ML IV ONE (07:30)
[2017-10-30 08:23] VITALS: BP 112/71
[2017-10-30] MEDS: LEVOTHYROXINE 100 MCG INJ IVPush SCH (09:08)
[2017-10-30] MEDS ORDERED: LORazepam 2 MG/ML, 1ML IVPush ONE (10:30)
[2017-10-30 18:26] VITALS: BP 118/73
[2017-10-31 00:37] VITALS: BP 123/72
[2017-10-31] MEDS: SODIUM CHLORIDE 0.9% 1,000 ML IV SCH (02:29)
[2017-10-31] MEDS: MORPHINE SULFATE 4 MG/ML, 1ML IVPush PRN ×4 (03:49→19:43)
[2017-10-31 04:50] LABS: MEAN CORPUSCULAR HEMOGLOBIN 32.1 pg (27.0-34.8); MEAN CORPUSCULAR HGB CONC 33.4 g/dL (32.4-35.8); MEAN CORPUSCULAR VOLUME 96.1 fL (80-100); MEAN PLATELET VOLUME 6.4 fL (7.4-10.4); PLATELET COUNT 174 x10^3/uL (130-400); RED BLOOD COUNT 2.37 x10^6/uL (3.82-5.3); RED CELL DISTRIBUTION WIDTH 16.4 % (9.6-15.2)
[2017-10-31 05:07] LABS: ALANINE AMINOTRANSFERASE 9 U/L (12-78); ALBUMIN 2.1 g/dL (3.4-5.0); ANION GAP 8 mmol/L (5-15); CALCIUM 10.1 mg/dL (8.5-10.1); CHLORIDE 105 mmol/L (98-107); CREATININE 0.33 mg/dL (0.55-1.02)
[2017-10-31 05:10] LABS: ALKALINE PHOSPHATASE 71 U/L (45-117); BILIRUBIN,TOTAL 0.4 mg/dL (0.2-1.0); TOTAL PROTEIN 5.4 g/dL (6.4-8.2)
[2017-10-31 05:15] LABS: BASOPHILS # (AUTO) 0.02 x10^3/uL (0-0.1); BASOPHILS % (AUTO) 1 % (0-1); EOSINOPHILS # (AUTO) 0.16 x10^3/uL (0-0.4); EOSINOPHILS % (AUTO) 4 % (1-7); LYMPHOCYTES # (AUTO) 0.37 x10^3/uL (1-3.4); LYMPHOCYTES % (AUTO) 8 % (22-44); MD NO; MONOCYTES % (AUTO) 13 % (2-9); NEUTROPHILS # (AUTO) 3.43 x10^3/uL (1.8-6.8); NEUTROPHILS % (AUTO) 75 % (42-75)
[2017-10-31] MEDS ORDERED: POTASSIUM CHLORIDE 30 MEQ in SODIUM CHLORIDE 0.45% 1,000 ML IV SCH (07:00)
[2017-10-31] MEDS ORDERED: POTASSIUM CHLORIDE 20 MEQ TAB.ER.PRT PO ONE (07:00)
[2017-10-31] MEDS ORDERED: MAGNESIUM SULFATE PMX 4GM/100M 100 ML IV ONE (07:00)
[2017-10-31 07:44] VITALS: BP 125/69
[2017-10-31] MEDS ORDERED: VISIPAQUE 270 MG/ML, 50ML BOTTLE ONE (08:45)
[2017-10-31] MEDS ORDERED: POTASSIUM CHLORIDE 10% 20 MEQ/15 ML UDC PO ONE ×2 (09:00→14:30)
[2017-10-31] MEDS: LEVOTHYROXINE 100 MCG INJ IVPush SCH (09:51)
[2017-10-31 13:53] VITALS: BP 98/67
[2017-10-31] MEDS: HYDROcodone/APAP 5/325 TABLET PO PRN ×2 (16:45→20:50)
[2017-10-31 18:41] VITALS: BP 107/67
[2017-11-01] VITALS (7 sets, daily range): BP systolic 93–126; BP diastolic 58–76
[2017-11-01] MEDS: HYDROcodone/APAP 5/325 TABLET PO PRN ×4 (01:12→19:27)
[2017-11-01 05:07] LABS: MEAN CORPUSCULAR HEMOGLOBIN 32.5 pg (27.0-34.8); MEAN CORPUSCULAR HGB CONC 33.4 g/dL (32.4-35.8); MEAN CORPUSCULAR VOLUME 97.3 fL (80-100); MEAN PLATELET VOLUME 6.8 fL (7.4-10.4); PLATELET COUNT 155 x10^3/uL (130-400); RED BLOOD COUNT 2.26 x10^6/uL (3.82-5.3); RED CELL DISTRIBUTION WIDTH 16.4 % (9.6-15.2)
[2017-11-01 05:10] LABS: ALBUMIN 1.9 g/dL (3.4-5.0); ANION GAP 5 mmol/L (5-15); CALCIUM 10.9 mg/dL (8.5-10.1); CHLORIDE 108 mmol/L (98-107); CREATININE 0.37 mg/dL (0.55-1.02)
[2017-11-01 05:46] LABS: BASOPHILS # (AUTO) 0.01 x10^3/uL (0-0.1); BASOPHILS % (AUTO) 0 % (0-1); EOSINOPHILS # (AUTO) 0.24 x10^3/uL (0-0.4); EOSINOPHILS % (AUTO) 5 % (1-7); LYMPHOCYTES # (AUTO) 0.41 x10^3/uL (1-3.4); LYMPHOCYTES % (AUTO) 8 % (22-44); MD SCAN; MONOCYTES # (AUTO) 0.71 x10^3/uL (0.2-0.8); MONOCYTES % (AUTO) 14 % (2-9); NEUTROPHILS # (AUTO) 3.63 x10^3/uL (1.8-6.8); NEUTROPHILS % (AUTO) 73 % (42-75)
[2017-11-01] MEDS: LEVOTHYROXINE 75 MCG TABLET PO SCH (06:09)
[2017-11-01] MEDS: MORPHINE SULFATE 4 MG/ML, 1ML IVPush PRN (21:45)
[2017-11-02 00:40] VITALS: BP 133/68
[2017-11-02 01:00] VITALS: BP 133/68
[2017-11-02] MEDS: MORPHINE SULFATE 4 MG/ML, 1ML IVPush PRN ×6 (01:01→23:22)
[2017-11-02] MEDS: LEVOTHYROXINE 75 MCG TABLET PO SCH (05:48)
[2017-11-02 07:25] VITALS: BP 121/75
[2017-11-02 09:42] LABS: ANION GAP 7 mmol/L (5-15); CALCIUM 10.9 mg/dL (8.5-10.1); CHLORIDE 101 mmol/L (98-107); CREATININE 0.49 mg/dL (0.55-1.02); MEAN CORPUSCULAR HEMOGLOBIN 32.2 pg (27.0-34.8); MEAN CORPUSCULAR HGB CONC 33.8 g/dL (32.4-35.8); MEAN CORPUSCULAR VOLUME 95.4 fL (80-100); MEAN PLATELET VOLUME 6.9 fL (7.4-10.4); PLATELET COUNT 149 x10^3/uL (130-400); RED BLOOD COUNT 3.19 x10^6/uL (3.82-5.3)
[2017-11-02 10:21] LABS: BASOPHILS # (AUTO) 0.02 x10^3/uL (0-0.1); BASOPHILS % (AUTO) 0 % (0-1); EOSINOPHILS # (AUTO) 0.21 x10^3/uL (0-0.4); EOSINOPHILS % (AUTO) 3 % (1-7); LYMPHOCYTES # (AUTO) 0.45 x10^3/uL (1-3.4); LYMPHOCYTES % (AUTO) 7 % (22-44); MD SCAN; MONOCYTES # (AUTO) 0.83 x10^3/uL (0.2-0.8); MONOCYTES % (AUTO) 12 % (2-9); NEUTROPHILS # (AUTO) 5.38 x10^3/uL (1.8-6.8); NEUTROPHILS % (AUTO) 78 % (42-75)
[2017-11-02] MEDS ORDERED: MAGNESIUM SULFATE PMX 2GM/50ML 50 ML IV ONE (10:30)
[2017-11-02] MEDS ORDERED: SODIUM PHOSPHATE 4 MEQ/ML IV SCH (10:30)
[2017-11-02] MEDS ORDERED: SODIUM PHOSPHATE 30 MMOL in SODIUM CHLORIDE 0.9% 500 ML IV ONE (11:00)
[2017-11-02 14:10] VITALS: BP 105/66
[2017-11-02 18:51] VITALS: BP 120/71
[2017-11-03 01:32] VITALS: BP 128/72
[2017-11-03] MEDS: HYDROcodone/APAP 5/325 TABLET PO PRN ×2 (01:45→07:45)
[2017-11-03] MEDS: SODIUM CHLORIDE NASAL SPRAY 45ML BOTTLE NAS PRN (02:09)
[2017-11-03] MEDS: MORPHINE SULFATE 4 MG/ML, 1ML IVPush PRN ×4 (04:33→21:08)
[2017-11-03] MEDS: LEVOTHYROXINE 75 MCG TABLET PO SCH (05:00)
[2017-11-03 05:04] LABS: BASOPHILS # (AUTO) 0.02 x10^3/uL (0-0.1); BASOPHILS % (AUTO) 0 % (0-1); EOSINOPHILS # (AUTO) 0.17 x10^3/uL (0-0.4); EOSINOPHILS % (AUTO) 3 % (1-7); LYMPHOCYTES # (AUTO) 0.43 x10^3/uL (1-3.4); LYMPHOCYTES % (AUTO) 6 % (22-44); MD NO; MEAN CORPUSCULAR HEMOGLOBIN 32.4 pg (27.0-34.8); MEAN CORPUSCULAR HGB CONC 33.7 g/dL (32.4-35.8); MEAN PLATELET VOLUME 6.9 fL (7.4-10.4); MONOCYTES # (AUTO) 1.03 x10^3/uL (0.2-0.8); MONOCYTES % (AUTO) 15 % (2-9); NEUTROPHILS # (AUTO) 5.28 x10^3/uL (1.8-6.8); NEUTROPHILS % (AUTO) 76 % (42-75); PLATELET COUNT 136 x10^3/uL (130-400); RED BLOOD COUNT 2.96 x10^6/uL (3.82-5.3); RED CELL DISTRIBUTION WIDTH 15.8 % (9.6-15.2)
[2017-11-03 05:14] LABS: ANION GAP 4 mmol/L (5-15); CALCIUM 10.5 mg/dL (8.5-10.1); CHLORIDE 101 mmol/L (98-107)
[2017-11-03 05:16] LABS: CREATININE 0.46 mg/dL (0.55-1.02)
[2017-11-03 07:40] VITALS: BP 113/74
[2017-11-03] MEDS ORDERED: POTASSIUM CHLORIDE 20 MEQ TAB.ER.PRT PO ONE (08:00)
[2017-11-03] MEDS: POTASSIUM CHLORIDE 10% 20 MEQ/15 ML UDC PO SCH ×3 (09:00→13:00)
[2017-11-03 14:17] VITALS: BP 132/88
[2017-11-03] MEDS: D5%-0.45% NACL 1,000 ML IV SCH (16:00)
[2017-11-03] MEDS ORDERED: POTASSIUM CHLORIDE 40 MEQ in SODIUM CHLORIDE 0.9% 100 ML IV ONE (16:00)
[2017-11-03 19:23] VITALS: BP 129/74
[2017-11-04] MEDS: MORPHINE SULFATE 4 MG/ML, 1ML IVPush PRN ×5 (01:28→21:18)
[2017-11-04] MEDS: D5%-0.45% NACL 1,000 ML IV SCH ×2 (01:29→22:31)
[2017-11-04 01:42] VITALS: BP 119/74
[2017-11-04] MEDS: LEVOTHYROXINE 75 MCG TABLET PO SCH (06:00)
[2017-11-04 06:20] LABS: BASOPHILS # (AUTO) 0.03 x10^3/uL (0-0.1); BASOPHILS % (AUTO) 1 % (0-1); EOSINOPHILS # (AUTO) 0.14 x10^3/uL (0-0.4); EOSINOPHILS % (AUTO) 2 % (1-7); LYMPHOCYTES % (AUTO) 6 % (22-44); MD NO; MEAN CORPUSCULAR HEMOGLOBIN 32.4 pg (27.0-34.8); MEAN CORPUSCULAR HGB CONC 34.1 g/dL (32.4-35.8); MEAN PLATELET VOLUME 6.9 fL (7.4-10.4); MONOCYTES # (AUTO) 1.08 x10^3/uL (0.2-0.8); MONOCYTES % (AUTO) 15 % (2-9); NEUTROPHILS # (AUTO) 5.46 x10^3/uL (1.8-6.8); NEUTROPHILS % (AUTO) 77 % (42-75); PLATELET COUNT 144 x10^3/uL (130-400); RED CELL DISTRIBUTION WIDTH 15.8 % (9.6-15.2)
[2017-11-04 06:22] LABS: ALANINE AMINOTRANSFERASE 8 U/L (12-78); ANION GAP 5 mmol/L (5-15); CALCIUM 10.8 mg/dL (8.5-10.1); CHLORIDE 105 mmol/L (98-107); CREATININE 0.38 mg/dL (0.55-1.02)
[2017-11-04 06:24] LABS: ALKALINE PHOSPHATASE 81 U/L (45-117); BILIRUBIN,TOTAL 0.7 mg/dL (0.2-1.0); TOTAL PROTEIN 5.4 g/dL (6.4-8.2)
[2017-11-04] MEDS ORDERED: SODIUM PHOSPHATE 4 MEQ/ML IV SCH (07:00)
[2017-11-04] MEDS ORDERED: POTASSIUM CHLORIDE 40 MEQ in SODIUM CHLORIDE 0.9% 100 ML IV ONE (07:00)
[2017-11-04] MEDS ORDERED: SODIUM PHOSPHATE 30 MMOL in SODIUM CHLORIDE 0.9% 500 ML IV ONE (07:00)
[2017-11-04] MEDS ORDERED: MAGNESIUM SULFATE PMX 2GM/50ML 50 ML IV ONE (07:00)
[2017-11-04 07:20] VITALS: BP 143/88
[2017-11-04] MEDS ORDERED: POTASSIUM CHLORIDE 40 MEQ in SODIUM CHLORIDE 0.9% 500 ML IV ONE (07:30)
[2017-11-04] MEDS ORDERED: HEPARIN 5,000 UNITS/ML, 1ML IV ONE (11:00)
[2017-11-04] MEDS ORDERED: HEPARIN 25,000 UNITS/500ML PMX 500 ML IV PRN ×2 (11:00)
[2017-11-04] MEDS ORDERED: LIDOCAINE 1%, 10ML ONE (11:33)
[2017-11-04 13:04] LABS: OCCULT BLOOD POSITIVE (NEGATIVE)
[2017-11-04 13:45] VITALS: BP 114/68
[2017-11-04] MEDS ORDERED: POTASSIUM CHLORIDE 10% 20 MEQ/15 ML UDC PO SCH (17:00)
[2017-11-04 17:42] LABS: INTERNATIONAL NORMALIZED RATIO 1.06 (0.93-1.1)
[2017-11-04] MEDS ORDERED: WARFARIN 7.5 MG TABLET PO-COUM ONE (18:00)
[2017-11-04] MEDS: NEUTRA PHOS K 250 MG TABLET GT SCH ×2 (18:46→22:27)
[2017-11-04 20:00] VITALS: BP 127/81
[2017-11-04] MEDS: HEPARIN 5,000 UNITS/ML, 1ML IV PRN (22:22)
[2017-11-05] MEDS: MORPHINE SULFATE 4 MG/ML, 1ML IVPush PRN ×4 (01:02→20:08)
[2017-11-05 01:18] VITALS: BP 122/76
[2017-11-05] MEDS: LEVOTHYROXINE 75 MCG TABLET PO SCH (05:28)
[2017-11-05 06:02] LABS: ALANINE AMINOTRANSFERASE 9 U/L (12-78); ALBUMIN 1.9 g/dL (3.4-5.0); ANION GAP 6 mmol/L (5-15); CALCIUM 11.9 mg/dL (8.5-10.1); CHLORIDE 104 mmol/L (98-107); CREATININE 0.45 mg/dL (0.55-1.02)
[2017-11-05 06:03] LABS: MEAN CORPUSCULAR HGB CONC 33.7 g/dL (32.4-35.8); MEAN PLATELET VOLUME 7.3 fL (7.4-10.4); PLATELET COUNT 148 x10^3/uL (130-400); RED CELL DISTRIBUTION WIDTH 15.9 % (9.6-15.2)
[2017-11-05 06:05] LABS: ALKALINE PHOSPHATASE 79 U/L (45-117); BILIRUBIN,TOTAL 0.4 mg/dL (0.2-1.0); TOTAL PROTEIN 5.6 g/dL (6.4-8.2)
[2017-11-05 06:23] LABS: MD YES
[2017-11-05 06:27] LABS: <PLATELET ESTIMATE> ADEQUATE; <PLT MORPHOLOGY> NORMAL PLT MORPH; ANISOCYTOSIS 1+; BASOS#(MANUAL) 0.07 x10^3/uL (0-0.1); BASOS% (MANUAL) 1 % (0-1); EOS#(MANUAL) 0.21 x10^3/uL (0.0-0.4); EOS% (MANUAL) 3 % (1-7); LYMPH#(MANUAL) 0.49 x10^3/uL (1-3.4); LYMPHS% (MANUAL) 7 % (22-44); MONOS#(MANUAL) 0.98 x10^3/uL (0.3-2.7); MONOS% (MANUAL) 14 % (2-9); SEG#(MANUAL) 5.25 x10^3/uL (1.8-6.8); SEGS% (MANUAL) 75 % (42-75)
[2017-11-05 07:25] VITALS: BP 145/78
[2017-11-05 07:56] LABS: INTERNATIONAL NORMALIZED RATIO 1.25 (0.93-1.1); PROTHROMBIN TIME 12.9 Seconds (9.6-11.5)
[2017-11-05] MEDS: HEPARIN 5,000 UNITS/ML, 1ML IV PRN (08:02)
[2017-11-05] MEDS ORDERED: MAGNESIUM SULFATE PMX 2GM/50ML 50 ML IV ONE (09:00)
[2017-11-05] MEDS: NEUTRA PHOS K 250 MG TABLET GT SCH ×3 (09:49→23:47)
[2017-11-05] MEDS: D5%-0.45% NACL 1,000 ML IV SCH (11:48)
[2017-11-05] MEDS: ENOXAPARIN 60 MG/0.6 ML SQ SCH ×2 (11:48→23:50)
[2017-11-05] MEDS: WARFARIN MODERAT DOSE PROTOCOL XX SCH (11:49)
[2017-11-05 13:57] VITALS: BP 131/77
[2017-11-05] MEDS ORDERED: WARFARIN 7.5 MG TABLET PO-COUM ONE (19:00)
[2017-11-05 19:46] VITALS: BP 144/77
[2017-11-06] MEDS: D5%-0.45% NACL 1,000 ML IV SCH ×3 (01:23→20:35)
[2017-11-06] MEDS: MORPHINE SULFATE 4 MG/ML, 1ML IVPush PRN ×5 (01:29→20:35)
[2017-11-06 02:04] VITALS: BP 123/73
[2017-11-06 04:41] LABS: BASOPHILS # (AUTO) 0.03 x10^3/uL (0-0.1); BASOPHILS % (AUTO) 0 % (0-1); EOSINOPHILS # (AUTO) 0.11 x10^3/uL (0-0.4); EOSINOPHILS % (AUTO) 2 % (1-7); LYMPHOCYTES # (AUTO) 0.41 x10^3/uL (1-3.4); LYMPHOCYTES % (AUTO) 6 % (22-44); MD NO; MEAN CORPUSCULAR HEMOGLOBIN 32.1 pg (27.0-34.8); MEAN CORPUSCULAR HGB CONC 33.6 g/dL (32.4-35.8); MEAN CORPUSCULAR VOLUME 95.4 fL (80-100); MEAN PLATELET VOLUME 7.2 fL (7.4-10.4); MONOCYTES # (AUTO) 0.87 x10^3/uL (0.2-0.8); MONOCYTES % (AUTO) 12 % (2-9); NEUTROPHILS # (AUTO) 5.62 x10^3/uL (1.8-6.8); NEUTROPHILS % (AUTO) 80 % (42-75); PLATELET COUNT 160 x10^3/uL (130-400); RED BLOOD COUNT 2.98 x10^6/uL (3.82-5.3); RED CELL DISTRIBUTION WIDTH 16.6 % (9.6-15.2)
[2017-11-06 04:48] LABS: INTERNATIONAL NORMALIZED RATIO 3.52 (0.93-1.1); PROTHROMBIN TIME 35.7 Seconds (9.6-11.5)
[2017-11-06] MEDS: LEVOTHYROXINE 75 MCG TABLET PO SCH (04:49)
[2017-11-06 04:53] LABS: ALANINE AMINOTRANSFERASE 10 U/L (12-78); ALBUMIN 1.9 g/dL (3.4-5.0); ANION GAP 8 mmol/L (5-15); CALCIUM 11.9 mg/dL (8.5-10.1); CHLORIDE 100 mmol/L (98-107)
[2017-11-06 04:56] LABS: ALKALINE PHOSPHATASE 105 U/L (45-117); BILIRUBIN,TOTAL 0.2 mg/dL (0.2-1.0); CREATININE 0.48 mg/dL (0.55-1.02); TOTAL PROTEIN 5.6 g/dL (6.4-8.2)
[2017-11-06] MEDS ORDERED: POTASSIUM CHLORIDE 10% 40 MEQ/30 ML UDC PO ONE (07:30)
[2017-11-06] MEDS ORDERED: POTASSIUM CHLORIDE 20 MEQ TAB.ER.PRT PO ONE (07:30)
[2017-11-06 07:54] VITALS: BP 123/76
[2017-11-06] MEDS ORDERED: POTASSIUM CHLORIDE 20 MEQ PACKET PO ONE (08:00)
[2017-11-06] MEDS: NEUTRA PHOS K 250 MG TABLET GT SCH ×3 (08:17→20:35)
[2017-11-06] MEDS ORDERED: HOLD COUMADIN MC PRN (08:30)
[2017-11-06] MEDS: ENOXAPARIN 60 MG/0.6 ML SQ SCH ×2 (11:24→16:38)
[2017-11-06] MEDS: WARFARIN MODERAT DOSE PROTOCOL XX SCH (12:00)
[2017-11-06 13:11] VITALS: BP 135/77
[2017-11-06] MEDS: HYDROcodone/APAP 5/325 TABLET PO PRN (13:14)
[2017-11-06 15:07] LABS: BASOPHILS # (AUTO) 0.02 x10^3/uL (0-0.1); BASOPHILS % (AUTO) 0 % (0-1); EOSINOPHILS % (AUTO) 1 % (1-7); LYMPHOCYTES # (AUTO) 0.35 x10^3/uL (1-3.4); LYMPHOCYTES % (AUTO) 4 % (22-44); MD NO; MEAN CORPUSCULAR HEMOGLOBIN 32.4 pg (27.0-34.8); MEAN CORPUSCULAR HGB CONC 33.9 g/dL (32.4-35.8); MEAN CORPUSCULAR VOLUME 95.4 fL (80-100); MEAN PLATELET VOLUME 6.9 fL (7.4-10.4); MONOCYTES % (AUTO) 11 % (2-9); NEUTROPHILS # (AUTO) 6.54 x10^3/uL (1.8-6.8); NEUTROPHILS % (AUTO) 83 % (42-75); PLATELET COUNT 167 x10^3/uL (130-400); RED BLOOD COUNT 3.02 x10^6/uL (3.82-5.3)
[2017-11-06 15:19] LABS: ALBUMIN 2.1 g/dL (3.4-5.0); ANION GAP 8 mmol/L (5-15); CHLORIDE 103 mmol/L (98-107)
[2017-11-06 15:23] LABS: ALANINE AMINOTRANSFERASE 11 U/L (12-78); ALKALINE PHOSPHATASE 110 U/L (45-117); BILIRUBIN,TOTAL 0.2 mg/dL (0.2-1.0); CREATININE 0.48 mg/dL (0.55-1.02); TOTAL PROTEIN 5.9 g/dL (6.4-8.2)
[2017-11-06] MEDS ORDERED: SODIUM CHLORIDE NASAL SPRAY 45ML BOTTLE NAS PRN (17:00)
[2017-11-06 19:58] VITALS: BP 120/78
[2017-11-07] MEDS: MORPHINE SULFATE 4 MG/ML, 1ML IVPush PRN ×5 (00:13→22:59)
[2017-11-07 00:32] VITALS: BP 127/77
[2017-11-07] MEDS: ENOXAPARIN 60 MG/0.6 ML SQ SCH (04:16)
[2017-11-07 05:09] LABS: MEAN CORPUSCULAR HEMOGLOBIN 31.6 pg (27.0-34.8); MEAN CORPUSCULAR HGB CONC 32.9 g/dL (32.4-35.8); MEAN CORPUSCULAR VOLUME 95.9 fL (80-100); MEAN PLATELET VOLUME 7.6 fL (7.4-10.4); PLATELET COUNT 170 x10^3/uL (130-400); RED BLOOD COUNT 3.01 x10^6/uL (3.82-5.3); RED CELL DISTRIBUTION WIDTH 16.7 % (9.6-15.2)
[2017-11-07 05:21] LABS: INTERNATIONAL NORMALIZED RATIO 3.57 (0.93-1.1); PROTHROMBIN TIME 36.2 Seconds (9.6-11.5)
[2017-11-07 05:25] LABS: CHLORIDE 100 mmol/L (98-107)
[2017-11-07 05:37] LABS: ALANINE AMINOTRANSFERASE 11 U/L (12-78); ALKALINE PHOSPHATASE 114 U/L (45-117); ANION GAP 7 mmol/L (5-15); BILIRUBIN,TOTAL 0.4 mg/dL (0.2-1.0); CALCIUM 11.5 mg/dL (8.5-10.1); CREATININE 0.48 mg/dL (0.55-1.02); TOTAL PROTEIN 5.8 g/dL (6.4-8.2)
[2017-11-07 05:43] LABS: BASOPHILS # (AUTO) 0.02 x10^3/uL (0-0.1); BASOPHILS % (AUTO) 0 % (0-1); EOSINOPHILS # (AUTO) 0.16 x10^3/uL (0-0.4); EOSINOPHILS % (AUTO) 2 % (1-7); LYMPHOCYTES # (AUTO) 0.44 x10^3/uL (1-3.4); LYMPHOCYTES % (AUTO) 5 % (22-44); MD SCAN; MONOCYTES % (AUTO) 10 % (2-9); NEUTROPHILS # (AUTO) 6.82 x10^3/uL (1.8-6.8); NEUTROPHILS % (AUTO) 83 % (42-75)
[2017-11-07] MEDS: LEVOTHYROXINE 75 MCG TABLET PO SCH (06:06)
[2017-11-07 06:56] VITALS: BP 130/76
[2017-11-07] MEDS ORDERED: SODIUM PHOSPHATE 4 MEQ/ML IV SCH (07:30)
[2017-11-07] MEDS ORDERED: MAGNESIUM SULFATE PMX 2GM/50ML 50 ML IV ONE (07:30)
[2017-11-07] MEDS ORDERED: SODIUM PHOSPHATE 30 MMOL in SODIUM CHLORIDE 0.9% 500 ML IV ONE (08:00)
[2017-11-07] MEDS ORDERED: HOLD COUMADIN MC PRN (08:00)
[2017-11-07] MEDS: NEUTRA PHOS K 250 MG TABLET GT SCH ×3 (08:49→20:53)
[2017-11-07] MEDS: WARFARIN MODERAT DOSE PROTOCOL XX SCH (12:00)
[2017-11-07] MEDS ORDERED: FENTANYL 25 MCG PATCH TD SCH (12:30)
[2017-11-07 12:55] VITALS: BP 124/74
[2017-11-07 18:30] VITALS: BP 128/78
[2017-11-07] MEDS: SULFAMETH./TRIMETHOPRIM DS 800MG/160MG TABLET PO SCH (20:53)
[2017-11-08 01:21] VITALS: BP 109/70
[2017-11-08 04:36] LABS: BASOPHILS % (AUTO) 0 % (0-1); EOSINOPHILS # (AUTO) 0.14 x10^3/uL (0-0.4); EOSINOPHILS % (AUTO) 2 % (1-7); LYMPHOCYTES # (AUTO) 0.37 x10^3/uL (1-3.4); LYMPHOCYTES % (AUTO) 4 % (22-44); MD NO; MEAN CORPUSCULAR HEMOGLOBIN 32.4 pg (27.0-34.8); MEAN CORPUSCULAR HGB CONC 33.7 g/dL (32.4-35.8); MEAN CORPUSCULAR VOLUME 96.2 fL (80-100); MEAN PLATELET VOLUME 7.2 fL (7.4-10.4); MONOCYTES # (AUTO) 0.97 x10^3/uL (0.2-0.8); MONOCYTES % (AUTO) 11 % (2-9); NEUTROPHILS % (AUTO) 83 % (42-75); PLATELET COUNT 170 x10^3/uL (130-400); RED BLOOD COUNT 2.77 x10^6/uL (3.82-5.3); RED CELL DISTRIBUTION WIDTH 16.6 % (9.6-15.2)
[2017-11-08 04:42] LABS: INTERNATIONAL NORMALIZED RATIO 1.86 (0.93-1.1); PROTHROMBIN TIME 19.1 Seconds (9.6-11.5)
[2017-11-08 04:50] LABS: ALBUMIN 1.8 g/dL (3.4-5.0); ANION GAP 9 mmol/L (5-15); CHLORIDE 100 mmol/L (98-107)
[2017-11-08] MEDS: LEVOTHYROXINE 75 MCG TABLET PO SCH (06:06)
[2017-11-08 07:10] VITALS: BP 118/69
[2017-11-08] MEDS ORDERED: FENTANYL 50 MCG PATCH TD SCH (08:00)
[2017-11-08] MEDS ORDERED: FENTANYL REMOVE PATCH NOTE XX SCH (08:00)
[2017-11-08] MEDS ORDERED: POTASSIUM CHLORIDE 10% 40 MEQ/30 ML UDC PO ONE (08:00)
[2017-11-08] MEDS: NEUTRA PHOS K 250 MG TABLET GT SCH ×3 (08:48→20:18)
[2017-11-08] MEDS: SULFAMETH./TRIMETHOPRIM DS 800MG/160MG TABLET PO SCH ×2 (08:48→20:19)
[2017-11-08] MEDS: MORPHINE SULFATE 4 MG/ML, 1ML IVPush PRN (11:57)
[2017-11-08] MEDS: WARFARIN MODERAT DOSE PROTOCOL XX SCH (12:00)
[2017-11-08 14:00] VITALS: BP 118/76
[2017-11-08] MEDS ORDERED: WARFARIN 5 MG TABLET PO-COUM ONE (18:00)
[2017-11-08] MEDS: HYDROcodone/APAP 5/325 TABLET PO PRN ×2 (18:09→23:21)
[2017-11-08 19:15] VITALS: BP 118/69
[2017-11-09 01:10] VITALS: BP 100/60
[2017-11-09] MEDS: HYDROcodone/APAP 5/325 TABLET PO PRN ×2 (04:03→08:04)
[2017-11-09 05:04] LABS: INTERNATIONAL NORMALIZED RATIO 2.2 (0.93-1.1); PROTHROMBIN TIME 22.5 Seconds (9.6-11.5)
[2017-11-09 05:08] LABS: ALBUMIN 1.8 g/dL (3.4-5.0); ANION GAP 5 mmol/L (5-15); CALCIUM 12.1 mg/dL (8.5-10.1); CHLORIDE 101 mmol/L (98-107); CREATININE 0.81 mg/dL (0.55-1.02)
[2017-11-09] MEDS: LEVOTHYROXINE 75 MCG TABLET PO SCH (05:27)
[2017-11-09 07:39] VITALS: BP 130/68
[2017-11-09] MEDS: NEUTRA PHOS K 250 MG TABLET GT SCH (08:04)
[2017-11-09] MEDS: SULFAMETH./TRIMETHOPRIM DS 800MG/160MG TABLET PO SCH (08:04)
[2017-11-09] MEDS ORDERED: WARF2TAB PO (11:11)
[2017-11-09] MEDS ORDERED: SULF1TAB24 PO (17:37)
== END 2017-11-09 11:40 | disposition hospice, home (50) | DRG 393 ==
LOC: ED 21:53 → EDIP 22:31 → 3NW 23:26
PROVIDERS: ADMIT Internal Medicine; ATTEND Internal Medicine
PROC: 0D20XUZ Change Feeding Device in Upper Intestinal Tract, External Approach (ICD-10-PCS; principal; 2017-10-28)
PROC: 30233N1 Transfusion of Nonautologous Red Blood Cells into Peripheral Vein, Percutaneous Approach (ICD-10-PCS; 2017-11-01)
PROC: 02HV33Z Insertion of Infusion Device into Superior Vena Cava, Percutaneous Approach (ICD-10-PCS; 2017-11-01)
PROC: B548ZZA Ultrasonography of Superior Vena Cava, Guidance (ICD-10-PCS; 2017-11-01)
PROC: 0D20XUZ Change Feeding Device in Upper Intestinal Tract, External Approach (ICD-10-PCS; 2017-11-04)
DX: K94.29 Other complications of gastrostomy (principal); E43 Unspecified severe protein-calorie malnutrition; J96.00 Acute respiratory failure, unspecified whether with hypoxia or hypercapnia; I82.621 Acute embolism and thrombosis of deep veins of right upper extremity; E83.39 Other disorders of phosphorus metabolism; E83.42 Hypomagnesemia; K31.84 Gastroparesis; E87.1 Hypo-osmolality and hyponatremia; C32.9 Malignant neoplasm of larynx, unspecified; D64.9 Anemia, unspecified; E03.9 Hypothyroidism, unspecified; E55.9 Vitamin D deficiency, unspecified; Y84.9 Medical procedure, unspecified as the cause of abnormal reaction of the patient, or of later complication, without mention of misadventure at the time of the procedure; E83.51 Hypocalcemia; E83.52 Hypercalcemia; E87.6 Hypokalemia; I10 Essential (primary) hypertension; Z79.01 Long term (current) use of anticoagulants; Z85.819 Personal history of malignant neoplasm of unspecified site of lip, oral cavity, and pharynx; Z87.891 Personal history of nicotine dependence; Z79.899 Other long term (current) drug therapy; Z79.1 Long term (current) use of non-steroidal anti-inflammatories (NSAID); Z79.2 Long term (current) use of antibiotics; Z68.21 Body mass index [BMI] 21.0-21.9, adult
CPT/HCPCS: 36415; 36569; 43760; 49450; 49465; 70360; 71045; 75984; 76000; 76937; 77001; 77386; 80048; 80053; 82040; 82272; 83735; 83970; 84100; 84311; 85025; 85520; 85610; 86850; 86900; 86923; 87070; 87077; 87186; 87205; 96360; 99156; 99157; J1644; J1650; J2250; J2405; J3010; J3480; J3490; Q9966; C1729; C1751; C1769; C1892; C1894; J1940; J2060; J2310; J3475; J7030; J7040; P9016